=== PATIENT | male | born 1975 | race Caucasian/White ===

== ENCOUNTER 2016-12-15 00:05 | Emergency (ER) | payer OTHER ==
[~2016-12-15] VITALS: Ht 167.6 cm; Wt 86.4 kg
[~2016-12-15 00:05] MED LIST: NOMED
[2016-12-15 00:23] VITALS: BP 151/96; PULSE 68; RESP 14; O2SAT 94
--- NOTE | 2016-12-15 03:09 | ED.REPORT ---
HPI-Psychiatric Illness Date of Service Dec 15, 2016 ED Provider: Michael Armstrong MD The pt is a 41 y/o male with a hx of depression, CAD (s/p stenting), and HTN who presents to the ED via [facility] due to suicidal ideation. The pt contacted his friend who called . He planned to go to work and strangle himself today. 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 He does not specify why he plans to commit suicide and simply states "there's too much going on". The pt reports previous suicide attempt when he was younger. He also reports drinking alcohol today. He denies drug use. Nursing Notes Stated Complaint: SUICIDAL Chief Complaint: Psychiatric Complaint Nursing Notes Reviewed: Yes Allergies: Coded Allergies: No Known Allergies (Verified Allergy, Mild, 12/29/09) Miscellaneous Medications No Historical Medication (No Historical Medication) Ea General Time Seen by MD: 02:46 Chief Complaint Suicidal ideation Hx Obtained From: Patient Arrived By: Police Onset Occurred: Yesterday Symptom Duration: Since onset Severity: Current: No pain currently Severity: Maximum: No pain Recent Healthcare: No recent doctor visit Risk-Psychiatric Illness Suicide Risk Stratification Suicide Risk Factors - Adult: : Previous attempt RF Statements: Risk factors reviewed Past Medical History Past Medical History Dyslipidemia Tonsillar hypertrophy (s/p uvulopalatopharyndoplasty) Reports: Coronary artery disease ((s/p stenting)), Hypertension Past Surgical History uvulopalatopharyndoplasty Ambulatory Status Independent Review of Systems Psychiatric: Reports: Depression, Suicidal ideation Complete sys rev & neg: except as marked. Physical Exam Initial Vital Signs Vital Signs (First) Date Time Temp Pulse Resp B/P Pulse Ox O2 Delivery O2 Flow Rate FiO2 12/15/16 00:23 36.3 68 14 151/96 94 Room Air Initial VS: Reviewed, Vital signs abnormal Head / Eyes: Atraumatic, Normocephalic Neck: Supple, Non-tender, Full range of motion Respiratory: Breath sounds normal, Clear to auscultation, No respiratory distress Cardiovascular: Regular rate & rhythm, Heart sounds normal, Intact distal pulses Abdomen / GI: Soft, Non-tender, No guarding, No rebound, No distention Extremities: Vascular intact, Neuro intact, No swelling, No tenderness Skin: Warm, Dry, No cyanosis General/Constitutional: Alert, Cooperative Alertness: Positive: Sleeping but arousable Neurologic: Oriented X3, Speech NL, No motor deficits, No sensory deficits Psychiatric: Not homicidal, No hallucinations Abnormal Mood/Affect: Positive: Depressed, Flat affect Abnormal Thinking / Perception: Positive: Suicidal, with plan Interpretation & Diagnostics Lab Results Interpretation Result Diagram: 12/15/16 0535 12/15/16 0535 Test 12/15/16 01:01 12/15/16 05:30 12/15/16 05:35 Hold Urine Received (Received) Hold Aguirre Top Tube Received (Received) White Blood Count 5.8th/mm3 (3.8-10.1) Red Blood Count 4.51mil/mm3 (4.40-5.80) Hemoglobin 13.6g/dL (13.8-17.2) Hematocrit 39.5% (41.0-50.0) Mean Corpuscular Volume 87.6fL (81-100) Mean Corpuscular Hemoglobin 30.2pg (27.0-35.0) Mean Corpuscular Hemoglobin Concent 34.4% (32.0-37.0) Red Cell Distribution Width 13.2% (12.3-15.4) Platelet Count 262bil/L (150-400) Neutrophils (%) (Auto) 55.5% (40-74) Lymphocytes (%) (Auto) 34.0% (14-46) Monocytes (%) (Auto) 8.8% (4-12) Eosinophils (%) (Auto) 1.0% (0-5) Basophils (%) (Auto) 0.5% (0-3) Sodium Level 143mEq/L (134-144) Potassium Level 4.1mEq/L (3.5-5.2) Chloride Level 105mEq/L (97-108) Carbon Dioxide Level 24mmol/L (18-29) Blood Urea Nitrogen 17mg/dL (6-24) Creatinine 0.92mg/dL (0.76-1.27) Estimat Glomerular Filtration Rate 95mL/min (>59) Glucose Level 85mg/dL (60-99) Calcium Level 8.9mg/dL (8.5-10.1) Total Bilirubin 0.4mg/dL (0.0-1.2) Aspartate Amino Transf (AST/SGOT) 29U/L (0-50) Alanine Aminotransferase (ALT/SGPT) 30U/L (0-44) Alkaline Phosphatase 51U/L (25-150) Total Protein 6.3g/dL (6.4-8.4) Albumin 4.2g/dL (3.4-5.0) Thyroid Stimulating Hormone (TSH) 1.510uIU/mL (0.450-4.500) Lab values outside NL range: no clinical significance. Lab Results Interpretation: Breathalyzer 0.0 78 Re-Eval/Medical Decision Med Decision/Clinical Course 41-year-old male who is being under considerable psychosocial stress. He expressed suicidal ideation to a friend who then called the police who brought him here. He has been drinking. He has been medically cleared and is currently sobering while awaiting voluntary social work evaluation. His care is being turned over at change of shift to Dr. Bryant. Source of Hx: Old records Re-Evaluation/Progress : Time of Eval: 03:41 Re-Evaluation/Progress Note: Discussed the plan to have the social worker school meet with the pt later today. He understands and agrees. All questions answered. Counseled Regarding: Diagnosis Discharge & Departure Shift Change Sign-Out Patient Care Transferred: Yes Discussed Complaint(s): Yes Impression: Primary Impression: Suicide ideation Discharge Condition All VS Reviewed: Yes Referrals: Arianne Alfaro PA-C (PCP) Care Transferred to: Dr. Bryant Care Transferred at: 06:00 Scribe Attestation Portions of this note were transcribed by Nicole Amaya. I,, personally performed the history,physical exam and medical decision-making;I reviewed and confirmed the accuracy of the information in the transcribed note. Signed by Babatunde Hunt. 12/15/16 copies to: Arianne Alfaro PA-C, Howard L MD Dec 15, 2016 03:09 Nicole Amaya Dec 15, 2016 03:50
[2016-12-15 05:45] LABS: BASOPHILS % (AUTO) 0.5 % (0-3); MONOCYTES % (AUTO) 8.8 % (4-12); Mean Corpuscular Hemoglobin 30.2 pg (27.0-35.0); Mean Corpuscular Volume 87.6 fL (81-100); NEUTROPHILS % (AUTO) 55.5 % (40-74); Platelet Count 262 bil/L (150-400)
[2016-12-15 05:57] VITALS: BP 132/85; PULSE 60; RESP 16; O2SAT 96
[2016-12-15 13:46] VITALS: BP 169/102; PULSE 70; RESP 20; O2SAT 96
== END 2016-12-15 13:50 | disposition home or self-care (01) ==
LOC: SED 00:05
DX: R45.851 Suicidal ideations (principal); F32.9 Major depressive disorder, single episode, unspecified; F10.129 Alcohol abuse with intoxication, unspecified; I11.9 Hypertensive heart disease without heart failure; I25.10 Atherosclerotic heart disease of native coronary artery without angina pectoris; Z95.5 Presence of coronary angioplasty implant and graft